=== PATIENT | female | born 1990 | race Hispanic/Latino ===

== ENCOUNTER 2019-06-08 22:52 | Emergency (ER) | payer SELFPAY ==
[2019-06-09] MEDS ORDERED: Fluorescein Opthalmic Strip ONE (00:07)
[2019-06-09] MEDS ORDERED: Proparacaine 0.5% Opth 15 ML BOT ONE (00:07)
[2019-06-09] MEDS ORDERED: diphenhydrAMINE 25 MG CAP ONE (00:08)
== END 2019-06-09 01:20 | disposition home or self-care (01) ==
LOC: ERS 22:52
DX: H10.12 Acute atopic conjunctivitis, left eye (principal); D64.9 Anemia, unspecified; J45.909 Unspecified asthma, uncomplicated; Z79.51 Long term (current) use of inhaled steroids
CPT/HCPCS: 99283; Q0163

== ENCOUNTER 2021-02-15 06:47 | Emergency (ER) | payer SELFPAY ==
[2021-02-15 12:39] LABS: SARS-CoV-2 PCR by NAA Not Detected (NotDetected)
== END 2021-02-15 07:41 | disposition home or self-care (01) ==
LOC: ERS 06:47
DX: O99.512 Diseases of the respiratory system complicating pregnancy, second trimester (principal); J34.89 Other specified disorders of nose and nasal sinuses; J00 Acute nasopharyngitis [common cold]; J45.909 Unspecified asthma, uncomplicated; Z20.822 Contact with and (suspected) exposure to COVID-19; O99.012 Anemia complicating pregnancy, second trimester; O99.332 Smoking (tobacco) complicating pregnancy, second trimester; F17.290 Nicotine dependence, other tobacco product, uncomplicated
CPT/HCPCS: 99283; U0003; U0005

== ENCOUNTER 2025-01-15 08:54 | Observation (INO) | payer OTHER, SELFPAY ==
[2025-01-15 09:32] LABS: #Basophils 0.03 10x3/uL (0.0-0.2); #Eosinophils 0.17 10x3/uL (0.0-0.7); #Monocytes 0.34 10x3/uL (0.11-0.59); #Neutrophils 3.00 10x3/uL (1.40-6.50); %Basophils 0.6 % (0.0-1.0); %Eosinophils 3.3 % (0.0-10.0); %Lymphocytes 30.1 % (21.0-51.0); %Monocytes 6.7 % (0.0-10.0); %Neutrophils 58.9 % (42.0-75.0); Hematocrit 37.5 % (36.0-47.0); Hemoglobin 11.1 g/dL (12.0-16.0); Mean Corpuscular Hemoglobin 23.6 pg (27.0-31.0); Mean Corpuscular Volume 79.8 fL (78.0-98.0); Platelet Count 299 10x3/uL (130-400); Red Blood Cell (RBC) Count 4.70 mill/uL (4.20-5.40); White Blood Cell (WBC) Count 5.09 10x3/uL (4.8-10.8)
[2025-01-15 09:38] LABS: Pregnancy Test - Urine (BHCG) Negative (Negative); Pregu Control Background? CLEAR/WHITE (CLR/WHITE); Pregu Control Bar Appear? YES (CONTROL BAR)
[2025-01-15 09:40] LABS: Bacteria/HPF None Seen HPF (None Seen); CAUTI Indications for Culture Pelvic or flank pain; Glucose, Urine (Dipstick) Normal (Negative); Leukocyte Negative Leu/uL (Negative); Protein, Urine (Dipstick) Negative (Neg-Trace); Specific Gravity, Urine 1.014 (1.002-1.036); WBC/HPF 0-3 HPF (0-3)
[2025-01-15 09:48] LABS: ALT (SGPT) 23 U/L (Less than 34); AST (SGOT) 23 U/L (11-34); Albumin 3.7 g/dL (3.1-4.5); Alkaline Phosphatase 97 U/L (40-110); Anion Gap 10 mmol/L (10-20); BUN (Urea Nitrogen) 9 mg/dL (7.0-18.7); Bilirubin, Total 0.2 mg/dL (0.3-1.2); Calc. Creatinine Clearance 0 mL/min (70-130); Calcium 8.8 mg/dL (7.8-10.44); Carbon Dioxide 27 mmol/L (22-29); Chloride 104 mmol/L (98-107); Globulin 3.3 g/dL (2.4-3.5); Glucose 85 mg/dL (70-105); Lipase 27 U/L (8-78); Potassium 3.8 mmol/L (3.5-5.1); Sodium 137 mmol/L (136-145)
[2025-01-15 10:01] LABS: Urine Culture Reflex No No
[2025-01-15] MEDS ORDERED: Droperidol 5 MG/2 ML VIAL ONE (11:05)
[2025-01-15] MEDS ORDERED: Calcium Carbonate 500 MG ChewTAB PO PRN (15:10)
[2025-01-15] MEDS ORDERED: Ondansetron PF 4 MG/2 ML Vial IVP PRN (15:10)
[2025-01-15] MEDS ORDERED: Glucagon 1 MG/ML KIT IM PRN (15:10)
[2025-01-15] MEDS ORDERED: hydrALAZINE 20 MG/ML VIAL SLOW IVP PRN (15:10)
[2025-01-15] MEDS ORDERED: Acetaminophen 325 MG TAB PO PRN (15:10)
[2025-01-15] MEDS ORDERED: Dextrose 50% Abboject 50 ML SYRINGE SLOW IVP PRN (15:10)
[2025-01-15] MEDS ORDERED: Mag-Al 1200 mg/1200 mg/30 ML UDCUP PO PRN (15:10)
[2025-01-15 17:51] VITALS: BMI 39.0
[2025-01-15] MEDS: Ketorolac Tromethamine 30 MG (1 mL) VIAL IVP SCH (18:30)
[2025-01-15] MEDS: PNEUMOC 20-VAL CONJ-DIP CRM/PF 0.5 ML SYRINGE IM ONE (19:29)
[2025-01-15] MEDS: Famotidine/PF 20 mg/2ml Vial SLOW IVP SCH (19:35)
[2025-01-15] MEDS: Famotidine 20 MG TAB PO SCH (19:37)
[2025-01-16 05:32] LABS: #Basophils Less than 0.03 10x3/uL (0.0-0.2); #Eosinophils 0.28 10x3/uL (0.0-0.7); #Monocytes 0.46 10x3/uL (0.11-0.59); #Neutrophils 2.70 10x3/uL (1.40-6.50); %Basophils 0.4 % (0.0-1.0); %Eosinophils 4.9 % (0.0-10.0); %Lymphocytes 38.7 % (21.0-51.0); %Monocytes 8.1 % (0.0-10.0); %Neutrophils 47.4 % (42.0-75.0); Hematocrit 30.7 % (36.0-47.0); Hemoglobin 9.1 g/dL (12.0-16.0); Mean Corpuscular Hemoglobin 23.6 pg (27.0-31.0); Mean Corpuscular Volume 79.5 fL (78.0-98.0); Platelet Count 233 10x3/uL (130-400); Red Blood Cell (RBC) Count 3.86 mill/uL (4.20-5.40); White Blood Cell (WBC) Count 5.69 10x3/uL (4.8-10.8)
[2025-01-16 05:55] LABS: ALT (SGPT) 17 U/L (Less than 34); AST (SGOT) 19 U/L (11-34); Albumin 3.0 g/dL (3.1-4.5); Alkaline Phosphatase 73 U/L (40-110); Anion Gap 11 mmol/L (10-20); BUN (Urea Nitrogen) 4 mg/dL (7.0-18.7); Bilirubin, Total 0.2 mg/dL (0.3-1.2); Calc. Creatinine Clearance 208 mL/min (70-130); Calcium 7.8 mg/dL (7.8-10.44); Carbon Dioxide 25 mmol/L (22-29); Chloride 108 mmol/L (98-107); Globulin 2.7 g/dL (2.4-3.5); Glucose 81 mg/dL (70-105); Potassium 4.0 mmol/L (3.5-5.1); Sodium 140 mmol/L (136-145)
[2025-01-16] MEDS ORDERED: Bupivacaine 0.25% HCL 30 ML VIAL ONE (07:22)
[2025-01-16] MEDS ORDERED: PROPOFOL 20 ML ONE (08:22)
[2025-01-16] MEDS ORDERED: Rocuronium Bromide 10 MG/ML (10ML VIAL) ONE (08:22)
[2025-01-16] MEDS ORDERED: CEFAZOLIN 2 GM VIAL ONE (09:23)
[2025-01-16] MEDS ORDERED: Ondansetron PF 4 MG/2 ML Vial ONE (10:13)
[2025-01-16] MEDS ORDERED: Ketorolac Tromethamine 30 MG (1 mL) VIAL ONE (10:13)
[2025-01-16] MEDS ORDERED: SUGAMMADEX SODIUM 200 MG/2 ML VIAL ONE (10:30)
[2025-01-16] MEDS: HYDROcodone/Acetaminophen 5/325 mg Tablet PO PRN (13:52)
[2025-01-16 15:22] VITALS: BP 118/79; TEMP 97.4
== END 2025-01-16 18:10 | disposition home or self-care (01) ==
LOC: ERS 08:54 → SURG A 15:15
PROVIDERS: ADMIT Surgery; ATTEND Surgery
PROC: 0FT44ZZ Resection of Gallbladder, Percutaneous Endoscopic Approach (ICD-10-PCS; principal; 2025-01-15)
PROC: BF10YZZ Fluoroscopy of Bile Ducts using Other Contrast (ICD-10-PCS; 2025-01-15)
DX: K80.12 Calculus of gallbladder with acute and chronic cholecystitis without obstruction (principal); J45.909 Unspecified asthma, uncomplicated; F17.200 Nicotine dependence, unspecified, uncomplicated; Z87.59 Personal history of other complications of pregnancy, childbirth and the puerperium; Z90.49 Acquired absence of other specified parts of digestive tract; Z79.51 Long term (current) use of inhaled steroids
CPT/HCPCS: 36415; 76705; 80053; 81001; 81025; 83690; 85025; 88304; 96361; 96365; 96375; C1889; G0378; J0169; J0665; J1100; J1790; J1885; J2405; J2543; J2704; J3010; J7120; S2900